=== PATIENT | male | born 1980 | race Caucasian/White ===

== ENCOUNTER 2018-09-05 20:05 | Emergency (ER) | payer OTHER ==
[~2018-09-05] VITALS: Ht 175.3 cm; Wt 90.7 kg
[~2018-09-05 20:05] MED LIST: CYCL10 PO; IBUP600 PO; Kristalose20 GM PO; PROM25 PO; Percocet 5-3251 EACH PO; Robaxin-750750 MG PO; TAMS.4ER PO; Zofran8 MG PO
== END 2018-09-05 22:49 | disposition home or self-care (01) ==
LOC: ER 20:05
DX: R51 Headache (principal); Z79.899 Other long term (current) drug therapy
CPT/HCPCS: 96372; 99283-25; J1885

== ENCOUNTER 2020-11-21 23:26 | Emergency (ER) | payer OTHER ==
[~2020-11-21] VITALS: Ht 175.3 cm; Wt 102.1 kg
[2020-11-21 23:59] LABS: Source, Urine Voided
[2020-11-22 00:02] LABS: Bilirubin, Urine Neg (Neg); Blood, Urine Neg (Neg); Glucose Qualitative, Urine Neg (Neg); Ketones, Urine 1+ (Neg); Leukocyte Esterase, Urine Neg (Neg); Nitrite, Urine Neg (Neg); Protein, Urine 1+ (Neg); Urobilinogen, Urine 1+ (Normal)
[2020-11-22 00:03] LABS: BASOPHILS ABSOLUTE AUTO 0.05 K/mm3 (0.00-0.23); BASOPHILS PERCENT AUTO 0 % (0-2); EOSINOPHILS ABSOLUTE AUTO 0.04 K/mm3 (0.00-0.68); EOSINOPHILS PERCENT AUTO 0 % (0-6); Hematocrit 47.2 % (37.0-53.0); IMMATURE GRAN ABSOLUTE AUTO 0.04 K/mm3 (0.00-0.10); IMMATURE GRAN PERCENT AUTO 0 % (0-1); LYMPHOCYTES ABSOLUTE AUTO 1.04 K/mm3 (0.84-5.20); LYMPHOCYTES PERCENT AUTO 8 % (21-46); MONOCYTES ABSOLUTE AUTO 0.59 K/mm3 (0.16-1.47); MONOCYTES PERCENT AUTO 4 % (4-13); Mean Corpuscular HGB Conc 33.9 g/dL (31.5-36.5); Mean Corpuscular Volume 83 fL (80-100); Mean Platelet Volume 10.2 fL (9.1-12.4); NEUTROPHILS ABSOLUTE AUTO 11.84 K/mm3 (1.96-9.15); NEUTROPHILS PERCENT AUTO 87 % (41-73); Platelet Count 290 K/mm3 (150-400); RDW Coefficient Variation 12.1 % (11.7-14.2); RDW Standard Deviation 36.6 fL (35.1-46.3); Red Blood Cell Count 5.72 M/mm3 (4.30-5.90)
[2020-11-22 00:22] LABS: Alanine Aminotransfer (ALT/SGP 60 U/L (12-78); Albumin, Blood 4.1 g/dL (3.4-5.0); Albumin/Globulin Ratio 1.1 (0.8-1.8); Alk Phos 74 U/L (50-136); Anion Gap 7 mmol/L (6-16); Aspartate Aminotrans (AST/SGOT 29 U/L (12-37); Bilirubin, Total 0.5 mg/dL (0.1-1.0); Blood Urea Nitrogen 20 mg/dL (8-24); Bun/Creatinine Ratio 16.5 (12.0-20.0); CO2, Blood 26 mmol/L (21-32); Calcium, Blood 9.3 mg/dL (8.5-10.1); Chloride, Blood 109 mmol/L (98-108); Creatinine, Blood 1.21 mg/dL (0.60-1.20); Globulin, Blood 3.8 g/dL (2.2-4.0); Glomerular Filtration Rate >60 (60-); Glucose, Blood 142 mg/dL (70-99); Potassium, Blood 3.9 mmol/L (3.5-5.5); Sodium, Blood 142 mmol/L (136-145); Total Protein, Blood 7.9 g/dL (6.4-8.2)
[2020-11-22 00:23] LABS: Appearance, Urine Hazy (Clear); Color, Urine Yellow (P-Yellow)
[2020-11-22 00:24] LABS: Amorphous Light (0-Heavy); Bacteria Rare /hpf; Mucus Mod (0-Heavy); Red Blood Cells, Urine Not Seen /hpf (0-2); Squamous Epithelial Cells Few /hpf (Few); White Blood Cells, Urine 0-2 /hpf (0-5)
[2020-11-22] MEDS ORDERED: Flomax0.4 MG PO (03:29)
[2020-11-22] MEDS ORDERED: IBUP800 PO (03:29)
== END 2020-11-22 03:55 | disposition home or self-care (01) ==
LOC: ER 23:26
PROVIDERS: Emergency Medicine
DX: N13.2 Hydronephrosis with renal and ureteral calculous obstruction (principal); Z88.0 Allergy status to penicillin
CPT/HCPCS: 36415; 74176; 80053; 81001; 85025; 96374; 99284-25; J1885

== ENCOUNTER 2020-11-23 17:47 | Emergency (ER) | payer BC ==
[~2020-11-23] VITALS: Ht 175.3 cm; Wt 102.1 kg
[~2020-11-23 17:47] MED LIST changes: +Flomax0.4 MG PO; +IBUP800 PO
[2020-11-23 18:17] LABS: BASOPHILS ABSOLUTE AUTO 0.02 K/mm3 (0.00-0.23); BASOPHILS PERCENT AUTO 0 % (0-2); EOSINOPHILS ABSOLUTE AUTO 0.04 K/mm3 (0.00-0.68); EOSINOPHILS PERCENT AUTO 0 % (0-6); Hematocrit 45.3 % (37.0-53.0); Hemoglobin 15.5 g/dL (13.5-17.5); IMMATURE GRAN ABSOLUTE AUTO 0.02 K/mm3 (0.00-0.10); IMMATURE GRAN PERCENT AUTO 0 % (0-1); LYMPHOCYTES ABSOLUTE AUTO 1.04 K/mm3 (0.84-5.20); LYMPHOCYTES PERCENT AUTO 11 % (21-46); MONOCYTES ABSOLUTE AUTO 0.77 K/mm3 (0.16-1.47); MONOCYTES PERCENT AUTO 8 % (4-13); Mean Corpuscular HGB 28.3 pg (26.0-34.0); Mean Corpuscular HGB Conc 34.2 g/dL (31.5-36.5); Mean Corpuscular Volume 83 fL (80-100); Mean Platelet Volume 10.1 fL (9.1-12.4); NEUTROPHILS ABSOLUTE AUTO 7.56 K/mm3 (1.96-9.15); NEUTROPHILS PERCENT AUTO 80 % (41-73); Platelet Count 244 K/mm3 (150-400); RDW Coefficient Variation 12.2 % (11.7-14.2); RDW Standard Deviation 37.2 fL (35.1-46.3); Red Blood Cell Count 5.48 M/mm3 (4.30-5.90); White Blood Cell Count 9.45 K/mm3 (4.00-11.30)
[2020-11-23 18:41] LABS: Albumin, Blood 3.9 g/dL (3.4-5.0); Albumin/Globulin Ratio 1.1 (0.8-1.8); Bun/Creatinine Ratio 12.7 (12.0-20.0); Calcium, Blood 9.1 mg/dL (8.5-10.1); Creatinine, Blood 1.81 mg/dL (0.60-1.20); Globulin, Blood 3.5 g/dL (2.2-4.0); Potassium, Blood 3.6 mmol/L (3.5-5.5); Total Protein, Blood 7.4 g/dL (6.4-8.2)
== END 2020-11-23 21:55 | disposition home or self-care (01) ==
LOC: ER 17:47
PROVIDERS: Physician Assistant
DX: N23 Unspecified renal colic (principal); Z88.0 Allergy status to penicillin; Z87.442 Personal history of urinary calculi; Z79.899 Other long term (current) drug therapy
CPT/HCPCS: 36415; 80053; 83690; 85025; 96361; 96374; 99284-25; J1885; J7030

== ENCOUNTER 2020-11-25 05:37 | Emergency (ER) | payer SELFPAY ==
[~2020-11-25] VITALS: Ht 175.3 cm; Wt 102.1 kg
[2020-11-25 06:02] LABS: BASOPHILS ABSOLUTE AUTO 0.02 K/mm3 (0.00-0.23); BASOPHILS PERCENT AUTO 0 % (0-2); EOSINOPHILS ABSOLUTE AUTO 0.04 K/mm3 (0.00-0.68); EOSINOPHILS PERCENT AUTO 1 % (0-6); Hematocrit 44.2 % (37.0-53.0); IMMATURE GRAN ABSOLUTE AUTO 0.03 K/mm3 (0.00-0.10); IMMATURE GRAN PERCENT AUTO 0 % (0-1); LYMPHOCYTES ABSOLUTE AUTO 0.65 K/mm3 (0.84-5.20); LYMPHOCYTES PERCENT AUTO 8 % (21-46); MONOCYTES ABSOLUTE AUTO 0.69 K/mm3 (0.16-1.47); MONOCYTES PERCENT AUTO 8 % (4-13); Mean Corpuscular HGB 28.1 pg (26.0-34.0); Mean Corpuscular HGB Conc 33.9 g/dL (31.5-36.5); Mean Corpuscular Volume 83 fL (80-100); Mean Platelet Volume 9.9 fL (9.1-12.4); NEUTROPHILS ABSOLUTE AUTO 7.21 K/mm3 (1.96-9.15); NEUTROPHILS PERCENT AUTO 84 % (41-73); Platelet Count 219 K/mm3 (150-400); RDW Coefficient Variation 12.1 % (11.7-14.2); RDW Standard Deviation 36.6 fL (35.1-46.3); Red Blood Cell Count 5.33 M/mm3 (4.30-5.90); White Blood Cell Count 8.64 K/mm3 (4.00-11.30)
[2020-11-25 06:21] LABS: Albumin, Blood 3.6 g/dL (3.4-5.0); Albumin/Globulin Ratio 0.9 (0.8-1.8); Bilirubin, Total 0.8 mg/dL (0.1-1.0); Bun/Creatinine Ratio 11.4 (12.0-20.0); Calcium, Blood 9.4 mg/dL (8.5-10.1); Creatinine, Blood 1.66 mg/dL (0.60-1.20); Globulin, Blood 3.9 g/dL (2.2-4.0); Potassium, Blood 3.9 mmol/L (3.5-5.5); Total Protein, Blood 7.5 g/dL (6.4-8.2)
[2020-11-25 07:33] LABS: Source, Urine Clean Catch
[2020-11-25 07:41] LABS: Bilirubin, Urine Neg (Neg); Blood, Urine Neg (Neg); Glucose Qualitative, Urine Neg (Neg); Ketones, Urine 4+ (Neg); Leukocyte Esterase, Urine Neg (Neg); Nitrite, Urine Neg (Neg); Protein, Urine 1+ (Neg); Urobilinogen, Urine NORM (Normal)
[2020-11-25 07:46] LABS: Appearance, Urine Clear (Clear); Color, Urine Yellow (P-Yellow)
== END 2020-11-25 09:42 | disposition home or self-care (01) ==
LOC: ER 05:37
PROVIDERS: Emergency Medicine
DX: N13.2 Hydronephrosis with renal and ureteral calculous obstruction (principal); E86.0 Dehydration; N17.9 Acute kidney failure, unspecified; Z88.0 Allergy status to penicillin
CPT/HCPCS: 36415; 76770; 80053; 85025; 96361; 96374; 96375; 99284-25; J1885; J2405; J7030; J7120

== ENCOUNTER 2022-07-04 14:25 | Emergency (ER) | payer SELFPAY ==
[~2022-07-04] VITALS: Ht 175.3 cm; Wt 99.8 kg
[2022-07-04] MEDS ORDERED: Cleocin HCl150 MG PO (16:34)
== END 2022-07-04 16:43 | disposition home or self-care (01) ==
LOC: ER 14:25
DX: K04.7 Periapical abscess without sinus (principal); W50.0XXA Accidental hit or strike by another person, initial encounter; Z88.0 Allergy status to penicillin; Z79.899 Other long term (current) drug therapy
CPT/HCPCS: 70486

== ENCOUNTER 2022-08-14 09:45 | Emergency (ER) | payer SELFPAY ==
[~2022-08-14] VITALS: Ht 175.3 cm; Wt 102.1 kg
[~2022-08-14 09:45] MED LIST changes: +Cleocin HCl150 MG PO
== END 2022-08-14 11:15 | disposition home or self-care (01) ==
LOC: ER 09:45
DX: S61.215A Laceration without foreign body of left ring finger without damage to nail, initial encounter (principal); W23.0XXA Caught, crushed, jammed, or pinched between moving objects, initial encounter; Z88.0 Allergy status to penicillin; Z79.899 Other long term (current) drug therapy
CPT/HCPCS: 73130